=== PATIENT | female | born 1980 | race African-American/Black ===

== ENCOUNTER 2017-11-02 17:07 | Emergency (ER) | payer MEDICAID ==
[~2017-11-02] VITALS: Ht 162.6 cm; Wt 59.0 kg
[2017-11-03 00:02] LABS: CLARITY URINE CLEAR (CLEAR); COLOR URINE YELLOW (YELLOW); KETONES URINE NEGATIVE (NEGATIVE); LEUKOCYTE ESTERASE URINE 2+ (NEGATIVE); NITRITE URINE NEGATIVE (NEGATIVE); OCCULT BLOOD URINE NEGATIVE (NEGATIVE); PROTEIN URINE NEGATIVE (NEGATIVE); SPECIFIC GRAVITY URINE 1.015 (1.005-1.030)
[2017-11-03 00:57] VITALS: BP 108/72
== END 2017-11-03 00:58 | disposition home or self-care (01) ==
LOC: ER 17:07
DX: N30.90 Cystitis, unspecified without hematuria (principal); A59.00 Urogenital trichomoniasis, unspecified; Z88.8 Allergy status to other drugs, medicaments and biological substances
CPT/HCPCS: 81003; 81025; 87077; 87086; 99284